=== PATIENT | male | born 1995 | race Caucasian/White ===

== ENCOUNTER 2017-02-07 16:31 | Emergency (ER) | payer OTHER ==
[~2017-02-07] VITALS: Ht 152.4 cm; Wt 72.1 kg
[2017-02-07 16:47] VITALS: BP 117/50
--- NOTE | 2017-02-07 18:58 | NUR ---
Patient ambulated to [facility] to be evaluated as fast track by BILLIE Velarde. RN evaluating patient.
--- NOTE | 2017-02-07 19:00 | NUR ---
21 Y/O M BIB MOTHER C/O REDNESS ON RIGHT EYE X 5 DAYS NO PAIN. MED HX; DOWN SYNDROME. NO S/S OF DISTRESS NOTED AT THE MOMENT.
--- NOTE | 2017-02-07 19:10 | NUR ---
ANIMAL COP EVALUATING PT AT BEDSIDE.
[2017-02-07 19:13] VITALS: BP 113/63
--- NOTE | 2017-02-07 19:13 | NUR ---
Patient discharged with v/s stable. Written and verbal after care instructions given and explained TO PT AND MOTHER. Ambulatory with steady gait. All questions addressed prior to discharge. ID band removed. Patient advised to follow up with PMD IN 2 DAYS OR BRING PT BACK TO ER IF CONDITION WORSENS. Rx of CORTISPORIN, AND ZYRTEC given. Patient educated on indication of medication including possible reaction and side effects. Opportunity to ask questions provided and answered.
== END 2017-02-07 19:13 | disposition home or self-care (01) ==
LOC: MED 16:31
DX: H10.9 Unspecified conjunctivitis (principal); J30.9 Allergic rhinitis, unspecified
CPT/HCPCS: 99283